=== PATIENT | male | born 1995 | race Caucasian/White ===

== ENCOUNTER 2016-05-15 00:44 | Emergency (ER) | payer BC, OTHER ==
[~2016-05-15] VITALS: Ht 180.3 cm; Wt 126.6 kg
--- NOTE | 2016-05-15 00:57 | ED.ADGEN ---
Past History Past Medical History: No Pertinent History, Depression Past Surgical History: No Surgical History Alcohol Use: None Drug Use: None Adult General Chief Complaint Chief Complaint ".. I am having a lot more thoughts of suicide.. 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 and I got to thinking how easy it would be to just shoot myself..." .. I would not do it... but it scared me I would even think of it... I ve had depression for years.. when I was a teenage.. I did try to drink some cleaning fluid... when I was a teenage.. . it just made me sick.. that when my dad and the family when in [place]... There is a lot of depression in my family.. my mom was either killed by drug dealers... or she shot herself.. My grandmother killed herself.. by auto exhaust.. she hooked up a hose to inside of the car.. I guess I inherited it...".. " I ve been depressed because I feel my friends are taking advantage.. of my good nature... ".. " I just worried because I would even think of suicide"... " I not thinking about doing it.. but I ve been depressed and felt I should finally see someone about..." HPI HPI Patient is a 20 year old male who presents with above hx and complaints of depression and thought suicidal ideation. Pt. denies drug or alcohol abuse. Patient denies any abuse of [id number] drugs. Patient denies any travel. Patient denies any other health problems. Patient not part of any counseling program currently. Pt. not on any psych. meds. Review of Systems Review of Systems Constitutional: Denies fever or chills [] Eyes: Denies change in visual acuity, redness, or eye pain [] HENT: Hx of recent nasal congestion and sore throat [] Respiratory: Non productive cough Cardiovascular: No additional information not addressed in HPI [] GI: Denies abdominal pain, nausea, vomiting, bloody stools or diarrhea [] : Denies dysuria or hematuria [] Musculoskeletal: Denies back pain or joint pain [] Integument: Denies rash or skin lesions [] Neurologic: Denies headache, focal weakness or sensory changes [] Endocrine: Denies polyuria or polydipsia [] Family History Family History Family hx of depression and suicide Current Medications Current Medications Current Medications Medications (Trade) Dose Ordered Sig/Oscar Start Time Stop Time Status Last Admin Dose Admin Cephalexin HCl (Keflex) 500 mg STK-MED ONCE 05/15/16 03:22 05/15/16 03:23 DC Citalopram Hydrobromide (Celexa) 20 mg 1X ONCE 05/15/16 03:30 05/15/16 03:31 DC 05/15/16 03:24 20 MG Lactated Ringer's (Iv Lactated Ringers) 1,000 ml @ 1,000 mls/hr Q1H 05/15/16 01:30 05/15/16 03:38 DC 05/15/16 02:15 1,000 MLS/HR Levofloxacin (Levaquin) 500 mg 1X ONCE 05/15/16 03:30 05/15/16 03:31 DC Allergies Allergies Allergies Coded Allergies Type Severity Reaction Last Updated Verified No Known Drug Allergies 08/30/15 No Physical Exam Physical Exam Constitutional: Well developed, well nourished, no acute distress, non-toxic appearance. [] HENT: Normocephalic, atraumatic, bilateral external ears normal, oropharynx moist, no oral exudates, nose congestion and rhinorrhea. Eyes: PERRLA, EOMI, conjunctiva normal, no discharge. [] Neck: Normal range of motion, no tenderness, supple, no stridor. [] Cardiovascular:Heart rate regular rhythm, no murmur [] Lungs & Thorax: Bilateral breath sounds equal at apex on auscultation . Few scattered wheeze that clear with cough. Abdomen: Bowel sounds normal, soft, no tenderness, no masses, no pulsatile masses. Obese Skin: Warm, dry, no erythema, no rash. [] Back: No tenderness, no CVA tenderness. [] Extremities: No tenderness, no cyanosis, no clubbing, ROM intact, no edema. [] Neurologic: Alert and oriented X 3, normal motor function, normal sensory function, no focal deficits noted. [] Psychologic: Affect normal, judgement normal, mood depressed. Denies hallucination, delusions or specific plan of suicide. States he just concerned that he even has thought of it. No hx of impulsivity given. Pt. lives with brother. Current Patient Data Vital Signs Vital Signs Date Time Temp Pulse Resp B/P Pulse Ox O2 Delivery O2 Flow Rate FiO2 05/15/16 03:12 137/72 05/15/16 00:44 97.9 83 20 94 Room Air Lab Results Laboratory Tests Test 05/15/16 01:29 05/15/16 03:06 White Blood Count 18.0x10^3/uL (4.0-11.0) H Red Blood Count 5.47x10^6/uL (4.30-5.70) Hemoglobin 16.2g/dL (13.0-17.5) Hematocrit 48.3% (39.0-53.0) Mean Corpuscular Volume 88fL (79-100) Mean Corpuscular Hemoglobin 30pg (25-35) Mean Corpuscular Hemoglobin Concent 34g/dL (31-37) Red Cell Distribution Width 14.2% (11.5-14.5) Platelet Count 211x10^3/uL (140-400) Neutrophils (%) (Auto) 57% (31-73) Lymphocytes (%) (Auto) 32% (24-48) Monocytes (%) (Auto) 7% (0-9) Eosinophils (%) (Auto) 4% (0-3) H Basophils (%) (Auto) 1% (0-3) Neutrophils # (Auto) 10.2x10^3uL (1.8-7.7) H Lymphocytes # (Auto) 5.7x10^3/uL (1.0-4.8) H Monocytes # (Auto) 1.3x10^3/uL (0.0-1.1) H Eosinophils # (Auto) 0.7x10^3/uL (0.0-0.7) Basophils # (Auto) 0.1x10^3/uL (0.0-0.2) Segmented Neutrophils % 51% (35-66) Band Neutrophils % 1% (0-9) Lymphocytes % 42% (24-48) Monocytes % 3% (0-10) Eosinophils % 3% (0-5) Platelet Estimate Adequate (ADEQUATE) Prothrombin Time 9.9SEC (9.4-11.4) Prothrombin Time INR 1.0 (0.9-1.1) PTT 25SEC (23-33) Sodium Level 141mmol/L (136-145) Potassium Level 3.9mmol/L (3.5-5.1) Chloride Level 104mmol/L (98-107) Carbon Dioxide Level 30mmol/L (21-32) Anion Gap 7 (6-14) Blood Urea Nitrogen 12mg/dL (8-26) Creatinine 1.2mg/dL (0.7-1.3) Estimated GFR (Cockcroft-Gault) 77.2 Glucose Level 101mg/dL (70-99) H Calcium Level 9.9mg/dL (8.5-10.1) Magnesium Level 2.1mg/dL (1.8-2.4) Total Bilirubin 0.2mg/dL (0.2-1.0) Direct Bilirubin 0.1mg/dL (0.0-0.2) Aspartate Amino Transferase (AST) 23U/L (15-37) Alanine Aminotransferase (ALT) 61U/L (16-63) Alkaline Phosphatase 107U/L (46-116) Total Protein 8.1g/dL (6.4-8.2) Albumin 4.4g/dL (3.4-5.0) Salicylates Level 4.4mg/dL (2.8-20.0) Salicylate Last Dose Date Unknown Salicylate Last Dose Time Unknown Acetaminophen Level < 2.0mcg/mL (10-30) L Acetaminophen Last Dose Date Unknown Acetaminophen Last Dose Time Unknown Ethyl Alcohol Level < 10mg/dL (0-10) Urine Collection Type Unknown Urine Color Yellow Urine Clarity Clear Urine pH 5.5 Urine Specific [place] 1.025 Urine Protein Trace (NEG-TRACE) Urine Glucose (UA) Negmg/dL (NEG) Urine Ketones (Stick) 15mg/dL (NEG) Urine Blood Trace (NEG) Urine Nitrite Neg (NEG) Urine Bilirubin Neg (NEG) Urine Urobilinogen Dipstick 1mg/dL (0.2 mg/dL) Urine Leukocyte Esterase Neg (NEG) Urine RBC 6-10/HPF (0-2) Urine WBC Occ/HPF (0-4) Urine Squamous Epithelial Cells Few/LPF Urine Bacteria 0/HPF (0-FEW) EKG EKG My interpretation of EKG shows sinus 80, lt. axis , no findings of STEMI with contralateral changes. [] Radiology/Procedures Radiology/Procedures [] Course & Med Decision Making Course & Med Decision Making Pertinent Labs and Imaging studies reviewed. (See chart for details). Discussed presentation, testing and tx. plan with Dr. Shaina Grimes, advise to start pt. on Celexa 20 mg a day. Pt. to follow up in out pt. counseling. Pt. felt to be a very low risks for suicide. Pt. reportedly in her interview demonstrated a insightful understanding and would report unsafe behavior or thought process. Pt. Agreeable to starting Celexa after review of side effects and risks. Pt. to follow up in counseling center. Pt. also started on Keflex 500 tid x 7 days for upper respiratory infection. Encourage to stop smoking. Encourage to return if any concerns, especially impulsive or suicidal ideation or plans. [] Final Impression Final Impression 1. Depression 2. Suicidal Ideation[] 3. Leukocytosis 4. Upper Respiratory Infection 5. Tobacco Abuse. Problems: Dragon Disclaimer Dragon Disclaimer This electronic medical record was generated, in whole or in part, using a voice recognition dictation system. SIMA MOJICA MD May 15, 2016 00:57
[2016-05-15 02:02] LABS: BASO # 0.1 x10^3/uL (0.0-0.2); BASO % 1 % (0-3); EOS # 0.7 x10^3/uL (0.0-0.7); EOS % 4 % (0-3); HEMATOCRIT 48.3 % (39.0-53.0); HEMOGLOBIN 16.2 g/dL (13.0-17.5); LYMPH # 5.7 x10^3/uL (1.0-4.8); LYMPH % 32 % (24-48); MEAN CORPUSCULAR HEMOGLOBIN 30 pg (25-35); MEAN CORPUSCULAR HGB CONC 34 g/dL (31-37); MEAN CORPUSCULAR VOLUME 88 fL (79-100); MONO # 1.3 x10^3/uL (0.0-1.1); MONO % 7 % (0-9); NEUT # 10.2 x10^3uL (1.8-7.7); NEUT % 57 % (31-73); PLATELET COUNT 211 x10^3/uL (140-400); RED BLOOD COUNT 5.47 x10^6/uL (4.30-5.70); RED CELL DISTRIBUTION WIDTH 14.2 % (11.5-14.5)
[2016-05-15 02:13] LABS: ALBUMIN 4.4 g/dL (3.4-5.0); CALCIUM 9.9 mg/dL (8.5-10.1); CREATININE 1.2 mg/dL (0.7-1.3); DIRECT BILIRUBIN 0.1 mg/dL (0.0-0.2); GFR 77.2; MAGNESIUM 2.1 mg/dL (1.8-2.4); POTASSIUM 3.9 mmol/L (3.5-5.1); TOTAL BILIRUBIN 0.2 mg/dL (0.2-1.0); TOTAL PROTEIN 8.1 g/dL (6.4-8.2)
[2016-05-15] MEDS: IV RINGERS SOLUTION,LACTATED 1,000 ML IV SCH (02:15)
[2016-05-15 02:24] LABS: ACETAMIN < 2.0 mcg/mL (10-30); ETHANOL < 10 mg/dL (0-10); SALIC 4.4 mg/dL (2.8-20.0)
[2016-05-15 02:28] LABS: % BANDS 1 % (0-9); % EOS 3 % (0-5); % LYMPHS 42 % (24-48); % MONOS 3 % (0-10); % SEGS 51 % (35-66); PLT ESTIMATE ADEQUATE (ADEQUATE)
[2016-05-15] MEDS ORDERED: LEVO500T38 PO (03:01)
[2016-05-15] MEDS ORDERED: CITA20TA9 PO (03:01)
[2016-05-15] MEDS ORDERED: CEPH-264 PO (03:05)
[2016-05-15 03:12] VITALS: BP 137/72
[2016-05-15] MEDS: LEVOFLOXACIN 500 MG TABLET PO ONE (03:18)
[2016-05-15] MEDS ORDERED: CEPHALEXIN 500 MG CAPSULE ONE (03:22)
[2016-05-15] MEDS: CITALOPRAM 20 MG TABLET. PO ONE (03:24)
[2016-05-15] MEDS: CEPHALEXIN 500 MG CAPSULE PO ONE (03:24)
[2016-05-15 03:35] LABS: BILIRUBIN,URINE NEG (NEG); CLARITY,URINE CLEAR; COLOR,URINE YELLOW; GLUCOSE,URINE NEG (NEG)
[2016-05-15 03:36] LABS: BACTERIA,URINE 0 /HPF (0-FEW); NITRITE,URINE NEG (NEG); SQUAMOUS EPITHELIAL CELL,UR FEW /LPF; UROBILINOGEN,URINE 1 mg/dL (0.2 mg/dL); WBC,URINE OCC /HPF (0-4)
[2016-05-15 03:57] LABS: BARBITURATES NEG (NEG); BENZODIAZEPINES NEG (NEG); CANNABINOIDS NEG (NEG); COCAINE NEG (NEG); METHADONE NEG (NEG); OPIATES NEG (NEG); PHENCYCLIDINE NEG (NEG)
[2016-05-15 03:58] LABS: AMPHETAMINE/METHAMPHETAMINE NEG (NEG)
== END 2016-05-15 03:36 | disposition home or self-care (01) ==
LOC: ER 00:53
DX: F32.9 Major depressive disorder, single episode, unspecified (principal); R45.851 Suicidal ideations; D72.829 Elevated white blood cell count, unspecified; J06.9 Acute upper respiratory infection, unspecified; Z72.0 Tobacco use
CPT/HCPCS: 36415; 80048; 80076; 81001; 83735; 84443; 85007; 85027; 85610; 85730; 93005; 96360; 99285; G0480; G0481; G6038; J7120; 80196